=== PATIENT | female | born 1945 | race Two or more races ===

== ENCOUNTER 2020-05-07 14:29 | Emergency (ER) | payer BC, OTHER ==
[~2020-05-07] VITALS: Ht 152.4 cm; Wt 66.7 kg
[2020-05-07 16:57] VITALS: BP 164/71
== END 2020-05-07 17:13 | disposition home or self-care (01) ==
LOC: ER 14:29
DX: U07.1 COVID-19 (principal); J18.9 Pneumonia, unspecified organism
CPT/HCPCS: 71045

== ENCOUNTER 2020-05-11 14:35 | Inpatient (IN) | payer BC ==
[~2020-05-11] VITALS: Ht 170.2 cm; Wt 66.7 kg
[2020-05-11] MEDS ORDERED: ACETAMINOPHEN 650 mg PER 20.3 mL UD PO ONE (16:00)
[2020-05-11 16:45] LABS: Basophils # (auto) 0 10 ^3/uL (0-0.2); Basophils % (auto) 0.2 % (0.0-2.0); Eosinophils # (auto) 0 10 ^3/uL (0-0.8); Hematocrit 40.8 % (36.0-46.0); Hemoglobin 13.5 g/dL (12.2-16.2); Lymphocytes # (auto) 1.1 10 ^3/uL (0.4-5.4); Lymphocytes % (auto) 7.7 % (10.0-50.0); Mean Corpuscular Hemoglobin 27.8 pg (28.0-32.0); Mean Corpuscular Hgb Conc. 33.1 g/dL (32.0-36.0); Mean Corpuscular Volume 84.2 fL (80.0-100.0); Monocytes # (auto) 0.7 10 ^3/uL (0-1.3); Neutrophils # (auto) 12.2 10 ^3/uL (1.6-8.6); Neutrophils % (auto) 87.1 % (37.0-80.0); Platelet Count (auto) 348 10^3/uL (140-450); Red Blood Cells 4.85 10^6/uL (4.0-5.20); Red Cell Distribution Width 13.2 % (11.8-14.3)
[2020-05-11] MEDS ORDERED: ACETAMINOPHEN 325 MG TAB PO ONE (16:45)
[2020-05-11 17:13] LABS: Anion Gap 8 (5-15); Blood Urea Nitrogen 26 mg/dL (7-18); Calcium 8.9 mg/dL (8.5-10.1); Carbon Dioxide 27 mmol/L (21-32); Chloride 104 mmol/L (98-107); Glucose 84 mg/dL (74-106); Sodium 139 mmol/L (136-145)
[2020-05-11 17:15] LABS: INR 1.11 (0.9-1.15); Partial Thromboplastin Time 25.1 sec (23.0-31.2)
[2020-05-11 17:21] LABS: Alanine Aminotransferase 37 U/L (13-56); Alkaline Phosphatase 97 U/L (45-117); Aspartate Aminotransferase 48 U/L (15-37); BUN/Creatinine Ratio 20.8; Bilirubin, Total 0.6 mg/dL (0.2-1.0); GFR African American 54 mL/min; GFR Non-African American 45 mL/min; Lactate Dehydrogenase 324 U/L (84-246); Total Protein 7.4 g/dL (6.4-8.2)
[2020-05-11] MEDS ORDERED: DOXYCYCLINE 100MG/250ML 250 ML IV ONE (17:45)
[2020-05-11] MEDS ORDERED: DexAMETHasone SOD PHOS 10MG/1ML VIAL INJ IV ONE (17:45)
[2020-05-11] MEDS ORDERED: ZINC SULFATE 220mg CAP or TAB PO ONE (17:45)
[2020-05-11] MEDS ORDERED: NITROGLYCERIN 0.4 MG SL TAB SL PRN (19:15)
[2020-05-11] MEDS ORDERED: LORazepam 0.5 MG TAB PO PRN (19:15)
[2020-05-11] MEDS ORDERED: ACETAMINOPHEN 500 MG TAB PO PRN (19:15)
[2020-05-11] MEDS ORDERED: MORPHINE SULF INJ 2 MG/ML SYRINGE 1ML IV PRN ×2 (19:15)
[2020-05-11] MEDS ORDERED: SODIUM CHLORIDE 0.9% 1,000 ML IV SCH (19:15)
[2020-05-11] MEDS ORDERED: LABETALOL HCL 5 MG/ML 4ML SYRINGE IV PRN (19:15)
[2020-05-11] MEDS: BUDESONIDE (INHALATION) 180 MCG IH IN SCH (20:03)
[2020-05-11] MEDS: ALBUTEROL SULF HFA 90MCG INH 200DOSE IN SCH (20:04)
[2020-05-11 20:45] VITALS: BP 135/75
[2020-05-11] MEDS: DOXYCYCLINE 100MG/250ML 250 ML IV SCH (22:00)
[2020-05-11 22:12] VITALS: BP 135/75
[2020-05-11 23:17] LABS: Urine Bacteria NONE SEEN /hpf (None Seen); Urine Blood Negative /uL (Negative); Urine Hyaline Cast FEW /lpf (0 - 2); Urine Mucus FEW (None Seen); Urine Specific Gravity 1.033 (1.001-1.035); Urine WBC 3 /hpf (0 - 5)
[2020-05-11] MEDS ORDERED: DEXA4TAB PO (23:52)
[2020-05-11] MEDS ORDERED: LOSA-39 PO (23:52)
[2020-05-11] MEDS ORDERED: ONDA-144 PO (23:52)
[2020-05-11] MEDS ORDERED: ANAS1TAB52 PO (23:52)
[2020-05-11] MEDS ORDERED: MET50T PO (23:52)
[2020-05-11] MEDS ORDERED: ZINC220C8 PO (23:52)
[2020-05-11] MEDS ORDERED: DOXY100C2 PO (23:52)
[2020-05-11] MEDS ORDERED: ASCO500T11 PO (23:52)
[2020-05-12] MEDS ORDERED: ACETAMINOPHEN 325 MG TAB PO PRN (00:15)
[2020-05-12 05:00] VITALS: BP 137/68
[2020-05-12] MEDS: BUDESONIDE (INHALATION) 180 MCG IH IN SCH ×2 (07:20→22:14)
[2020-05-12] MEDS: ALBUTEROL SULF HFA 90MCG INH 200DOSE IN SCH (07:20)
[2020-05-12 07:57] LABS: Basophils # (auto) 0 10 ^3/uL (0-0.2); Eosinophils # (auto) 0 10 ^3/uL (0-0.8); Hematocrit 38.4 % (36.0-46.0); Hemoglobin 12.6 g/dL (12.2-16.2); Lymphocytes # (auto) 0.7 10 ^3/uL (0.4-5.4); Lymphocytes % (auto) 6.4 % (10.0-50.0); Mean Corpuscular Hemoglobin 27.7 pg (28.0-32.0); Mean Corpuscular Hgb Conc. 32.7 g/dL (32.0-36.0); Mean Corpuscular Volume 84.6 fL (80.0-100.0); Monocytes # (auto) 0.3 10 ^3/uL (0-1.3); Neutrophils # (auto) 10.5 10 ^3/uL (1.6-8.6); Neutrophils % (auto) 90.6 % (37.0-80.0); Nucleated Red Blood Cells % 0.2 %; Platelet Count (auto) 352 10^3/uL (140-450); Red Blood Cells 4.54 10^6/uL (4.0-5.20); Red Cell Distribution Width 13.2 % (11.8-14.3); White Blood Cell 11.6 10^3/uL (4.4-10.8)
[2020-05-12 08:27] LABS: Albumin 2.6 g/dL (3.4-5.0); Calcium 8.8 mg/dL (8.5-10.1); Potassium 4.4 mmol/L (3.5-5.1)
[2020-05-12 08:30] LABS: BUN/Creatinine Ratio 25.5; Bilirubin, Total 0.4 mg/dL (0.2-1.0); Total Protein 6.6 g/dL (6.4-8.2)
[2020-05-12 09:00] VITALS: BP 156/88
[2020-05-12] MEDS: CHOLECALCIFEROL (VITD3) 2,000 UNIT CAP PO SCH (10:00)
[2020-05-12] MEDS: DOXYCYCLINE 100MG/250ML 250 ML IV SCH (10:26)
[2020-05-12] MEDS: ENOXAPARIN SOD 40 MG/0.4 ML SYRINGE SC SCH (10:26)
[2020-05-12] MEDS: ZINC SULFATE 220mg CAP or TAB PO SCH (10:26)
[2020-05-12] MEDS: PANTOPRAZOLE 40 MG TAB PO SCH (10:26)
[2020-05-12] MEDS: ASCORBIC ACID 1,000 MG TAB PO SCH (10:26)
[2020-05-12] MEDS: DexAMETHasone SOD PHOS 10MG/1ML VIAL INJ IV SCH (10:27)
[2020-05-12] MEDS ORDERED: LABETALOL HCL 5 MG/ML 4ML SYRINGE IV PRN (12:45)
[2020-05-12 13:09] VITALS: BP 137/80
[2020-05-12] MEDS: DOCUSATE CALCIUM 240 MG CAP PO PRN (16:44)
[2020-05-12 17:00] VITALS: BP 141/68
[2020-05-12] MEDS ORDERED: REMDESIVIR 200 MG in NS 210ml LOADING DOSE ADULT IV ONE (17:00)
[2020-05-12 22:00] VITALS: BP 166/81
[2020-05-12] MEDS ORDERED: BUDESONIDE (INHALATION) 0.5 MG/2 ML NEB NEB SCH (22:00)
[2020-05-13] VITALS (10 sets, daily range): BP systolic 125–153; BP diastolic 58–86
[2020-05-13] MEDS: BUDESONIDE (INHALATION) 180 MCG IH IN SCH ×2 (07:24→22:49)
[2020-05-13 08:10] LABS: Basophils # (auto) 0 10 ^3/uL (0-0.2); Eosinophils # (auto) 0 10 ^3/uL (0-0.8); Hematocrit 35.6 % (36.0-46.0); Hemoglobin 11.6 g/dL (12.2-16.2); Lymphocytes # (auto) 1.1 10 ^3/uL (0.4-5.4); Lymphocytes % (auto) 12.6 % (10.0-50.0); Mean Corpuscular Hemoglobin 27.3 pg (28.0-32.0); Mean Corpuscular Hgb Conc. 32.4 g/dL (32.0-36.0); Mean Corpuscular Volume 84.3 fL (80.0-100.0); Monocytes # (auto) 0.7 10 ^3/uL (0-1.3); Monocytes % (auto) 7.8 % (0.0-12.0); Neutrophils # (auto) 7.1 10 ^3/uL (1.6-8.6); Neutrophils % (auto) 79.6 % (37.0-80.0); Platelet Count (auto) 338 10^3/uL (140-450); Red Blood Cells 4.23 10^6/uL (4.0-5.20); Red Cell Distribution Width 13.2 % (11.8-14.3); White Blood Cell 8.9 10^3/uL (4.4-10.8)
[2020-05-13 08:37] LABS: Potassium 3.9 mmol/L (3.5-5.1)
[2020-05-13 08:51] LABS: Albumin 2.5 g/dL (3.4-5.0); BUN/Creatinine Ratio 29.3; Bilirubin, Total 0.3 mg/dL (0.2-1.0); Calcium 8.9 mg/dL (8.5-10.1); Total Protein 6.4 g/dL (6.4-8.2)
[2020-05-13] MEDS: DexAMETHasone SOD PHOS 10MG/1ML VIAL INJ IV SCH (09:54)
[2020-05-13] MEDS: ASCORBIC ACID 1,000 MG TAB PO SCH (09:55)
[2020-05-13] MEDS: ZINC SULFATE 220mg CAP or TAB PO SCH (09:55)
[2020-05-13] MEDS: PANTOPRAZOLE 40 MG TAB PO SCH (09:55)
[2020-05-13] MEDS: CHOLECALCIFEROL (VITD3) 2,000 UNIT CAP PO SCH (09:55)
[2020-05-13] MEDS: ENOXAPARIN SOD 40 MG/0.4 ML SYRINGE SC SCH (09:56)
[2020-05-13] MEDS ORDERED: AZITHROMYCIN 500MG/ 250ML 250 ML IV SCH (10:00)
[2020-05-13] MEDS ORDERED: METOPROLOL SUCCINATE XL 50 MG TAB PO ONE (12:00)
[2020-05-13] MEDS ORDERED: LOSARTAN POTASSIUM 50 MG TAB PO ONE (12:00)
[2020-05-13] MEDS: DOCUSATE CALCIUM 240 MG CAP PO PRN (13:42)
[2020-05-13] MEDS: REMDESIVIR 100mg in NS 230ml DAILYx4DAYS (NO VENT) IV SCH (17:30)
[2020-05-13] MEDS: ANASTRAZOLE 1 MG PO SCH (22:34)
[2020-05-13] MEDS ORDERED: SODIUM CHLORIDE 0.9% 1,000 ML IV SCH (23:30)
[2020-05-14 05:00] VITALS: BP 157/69
[2020-05-14] MEDS: BUDESONIDE (INHALATION) 180 MCG IH IN SCH ×2 (06:52→22:00)
[2020-05-14 08:00] VITALS: BP 141/60
[2020-05-14 08:39] LABS: Basophils # (auto) 0 10 ^3/uL (0-0.2); Basophils % (auto) 0.2 % (0.0-2.0); Eosinophils # (auto) 0 10 ^3/uL (0-0.8); Eosinophils % (auto) 0.1 % (0.0-7.0); Hematocrit 36.5 % (36.0-46.0); Hemoglobin 11.9 g/dL (12.2-16.2); Lymphocytes # (auto) 1.4 10 ^3/uL (0.4-5.4); Lymphocytes % (auto) 25.4 % (10.0-50.0); Mean Corpuscular Hemoglobin 27.5 pg (28.0-32.0); Mean Corpuscular Hgb Conc. 32.7 g/dL (32.0-36.0); Mean Corpuscular Volume 84.1 fL (80.0-100.0); Monocytes # (auto) 0.7 10 ^3/uL (0-1.3); Monocytes % (auto) 12.5 % (0.0-12.0); Neutrophils # (auto) 3.3 10 ^3/uL (1.6-8.6); Neutrophils % (auto) 61.8 % (37.0-80.0); Platelet Count (auto) 379 10^3/uL (140-450); Red Blood Cells 4.34 10^6/uL (4.0-5.20); Red Cell Distribution Width 13.3 % (11.8-14.3); White Blood Cell 5.4 10^3/uL (4.4-10.8)
[2020-05-14 09:02] LABS: Potassium 3.9 mmol/L (3.5-5.1)
[2020-05-14 09:09] LABS: Albumin 2.4 g/dL (3.4-5.0); BUN/Creatinine Ratio 32.1; Bilirubin, Total 0.3 mg/dL (0.2-1.0); Total Protein 6.3 g/dL (6.4-8.2)
[2020-05-14] MEDS: ZINC SULFATE 220mg CAP or TAB PO SCH (10:23)
[2020-05-14] MEDS: LOSARTAN POTASSIUM 50 MG TAB PO SCH (10:23)
[2020-05-14] MEDS: METOPROLOL SUCCINATE XL 50 MG TAB PO SCH (10:23)
[2020-05-14] MEDS: PANTOPRAZOLE 40 MG TAB PO SCH (10:24)
[2020-05-14] MEDS: CHOLECALCIFEROL (VITD3) 2,000 UNIT CAP PO SCH (10:24)
[2020-05-14] MEDS: ASCORBIC ACID 1,000 MG TAB PO SCH (10:24)
[2020-05-14] MEDS: ENOXAPARIN SOD 40 MG/0.4 ML SYRINGE SC SCH ×2 (10:25→22:22)
[2020-05-14] MEDS: levoFLOXacin 500MG 100 ML IV SCH (10:26)
[2020-05-14] MEDS: DexAMETHasone SOD PHOS 10MG/1ML VIAL INJ IV SCH (10:41)
[2020-05-14 12:00] VITALS: BP 130/71
[2020-05-14] MEDS ORDERED: DOCUSATE SOD 100 MG CAP PO ONE (13:00)
[2020-05-14] MEDS: DOCUSATE CALCIUM 240 MG CAP PO PRN (14:58)
[2020-05-14 16:54] VITALS: BP 134/68
[2020-05-14] MEDS: REMDESIVIR 100mg in NS 230ml DAILYx4DAYS (NO VENT) IV SCH (17:40)
[2020-05-14] MEDS: ANASTRAZOLE 1 MG PO SCH (22:23)
[2020-05-15] VITALS (7 sets, daily range): BP systolic 113–136; BP diastolic 57–67
[2020-05-15] MEDS: BUDESONIDE (INHALATION) 180 MCG IH IN SCH ×2 (06:05→22:04)
[2020-05-15 08:19] LABS: Potassium 3.8 mmol/L (3.5-5.1)
[2020-05-15 08:26] LABS: Albumin 2.5 g/dL (3.4-5.0); BUN/Creatinine Ratio 32.2; Bilirubin, Total 0.4 mg/dL (0.2-1.0); Calcium 8.9 mg/dL (8.5-10.1); Total Protein 6.2 g/dL (6.4-8.2)
[2020-05-15] MEDS: LOSARTAN POTASSIUM 50 MG TAB PO SCH (10:34)
[2020-05-15] MEDS: PANTOPRAZOLE 40 MG TAB PO SCH (10:34)
[2020-05-15] MEDS: CHOLECALCIFEROL (VITD3) 2,000 UNIT CAP PO SCH (10:34)
[2020-05-15] MEDS: ASCORBIC ACID 1,000 MG TAB PO SCH (10:35)
[2020-05-15] MEDS: ZINC SULFATE 220mg CAP or TAB PO SCH (10:35)
[2020-05-15] MEDS: METOPROLOL SUCCINATE XL 50 MG TAB PO SCH (10:35)
[2020-05-15] MEDS: ENOXAPARIN SOD 40 MG/0.4 ML SYRINGE SC SCH ×2 (10:35→21:33)
[2020-05-15] MEDS: levoFLOXacin 500MG 100 ML IV SCH (10:36)
[2020-05-15] MEDS: DexAMETHasone SOD PHOS 10MG/1ML VIAL INJ IV SCH (10:36)
[2020-05-15] MEDS: DOCUSATE SOD 100 MG CAP PO PRN (11:29)
[2020-05-15] MEDS: metroNIDAZOLE 500MG/100ML 100 ML IV SCH ×2 (14:00→21:33)
[2020-05-15] MEDS: REMDESIVIR 100mg in NS 230ml DAILYx4DAYS (NO VENT) IV SCH (17:12)
[2020-05-15] MEDS: ANASTRAZOLE 1 MG PO SCH (21:33)
[2020-05-16 03:43] VITALS: BP 123/63
[2020-05-16 05:00] VITALS: BP 115/60
[2020-05-16] MEDS: metroNIDAZOLE 500MG/100ML 100 ML IV SCH ×2 (05:36→14:00)
[2020-05-16] MEDS: BUDESONIDE (INHALATION) 180 MCG IH IN SCH (06:52)
[2020-05-16 07:34] LABS: Albumin 2.5 g/dL (3.4-5.0); Calcium 8.9 mg/dL (8.5-10.1); Potassium 3.6 mmol/L (3.5-5.1)
[2020-05-16 07:43] LABS: BUN/Creatinine Ratio 35.2; Bilirubin, Total 0.4 mg/dL (0.2-1.0); Total Protein 6.2 g/dL (6.4-8.2)
[2020-05-16 09:00] VITALS: BP 116/58
[2020-05-16] MEDS: levoFLOXacin 500MG 100 ML IV SCH (10:49)
[2020-05-16] MEDS: DexAMETHasone SOD PHOS 10MG/1ML VIAL INJ IV SCH (10:49)
[2020-05-16] MEDS: ASCORBIC ACID 1,000 MG TAB PO SCH (10:50)
[2020-05-16] MEDS: LOSARTAN POTASSIUM 50 MG TAB PO SCH (10:50)
[2020-05-16] MEDS: PANTOPRAZOLE 40 MG TAB PO SCH (10:50)
[2020-05-16] MEDS: ZINC SULFATE 220mg CAP or TAB PO SCH (10:50)
[2020-05-16] MEDS: ENOXAPARIN SOD 40 MG/0.4 ML SYRINGE SC SCH (10:50)
[2020-05-16] MEDS: CHOLECALCIFEROL (VITD3) 2,000 UNIT CAP PO SCH (10:51)
[2020-05-16] MEDS: METOPROLOL SUCCINATE XL 50 MG TAB PO SCH (10:51)
[2020-05-16] MEDS: DOCUSATE SOD 100 MG CAP PO PRN (10:52)
[2020-05-16 13:00] VITALS: BP 124/62
[2020-05-16 17:00] VITALS: BP 120/59
[2020-05-16] MEDS: REMDESIVIR 100mg in NS 230ml DAILYx4DAYS (NO VENT) IV SCH (17:50)
== END 2020-05-16 20:30 | disposition home or self-care (01) | DRG 871 ==
LOC: EDSEX 14:35 → EDBD 14:35 → ER 14:35 → TELE-EAST 14:36
PROVIDERS: ADMIT Family Medicine; ATTEND Internal Medicine
PROC: XW033E5 Introduction of Remdesivir Anti-infective into Peripheral Vein, Percutaneous Approach, New Technology Group 5 (ICD-10-PCS; principal; 2020-05-12)
PROC: XW13325 Transfusion of Convalescent Plasma (Nonautologous) into Peripheral Vein, Percutaneous Approach, New Technology Group 5 (ICD-10-PCS; 2020-05-13)
DX: A41.89 Other specified sepsis (principal); J96.01 Acute respiratory failure with hypoxia; U07.1 COVID-19; J12.89 Other viral pneumonia; E43 Unspecified severe protein-calorie malnutrition; K57.32 Diverticulitis of large intestine without perforation or abscess without bleeding; N17.9 Acute kidney failure, unspecified; E86.0 Dehydration; I10 Essential (primary) hypertension; N28.9 Disorder of kidney and ureter, unspecified; Z79.82 Long term (current) use of aspirin; Z79.899 Other long term (current) drug therapy; Z88.0 Allergy status to penicillin; Z90.49 Acquired absence of other specified parts of digestive tract; Z91.041 Radiographic dye allergy status; I49.9 Cardiac arrhythmia, unspecified; Z68.23 Body mass index [BMI] 23.0-23.9, adult; D64.9 Anemia, unspecified
CPT/HCPCS: 36415; 36600; 71045; 71250; 74176; 80053; 81001; 82728; 82805; 83605; 83615; 83735; 83880; 84443; 84484; 85025; 85379; 85610; 85730; 86141; 86850; 86900; 86901; 87040; 87081; 93005; 94640; 96365; 96366; 96375; 99291; G0378; J1100; J1956; J3490